=== PATIENT | female | born 1955 | race Caucasian/White ===

== ENCOUNTER 2016-07-05 17:26 | Emergency (ER) | payer OTHER ==
[~2016-07-05] VITALS: Ht 160 cm; Wt 46.6 kg
[~2016-07-05 17:26] MED LIST: ABILIFY15 MG PO; ACIPHEX20 MG PO; ADVAIR 500/501 DISK IH; ADVIL200 MG PO; ATARAX,VISTARIL50 MG PO; CIPRO500 MG PO; CLARITIN10 MG PO; CYMBALTA30 MG PO; CYMBALTA60 MG PO; DESYREL 150 MG150 MG PO; DESYREL100 MG PO; IBUPROFEN800 MG PO; IPRATROPIUM IH; IRON325 M1 PO; KLONOPIN0.5 M1 PO; LIPITOR20 MG PO; LOPRESSOR25 MG PO; NALTREXONE HCL50 MG PO; NEURONTIN100 MG PO; NORVASC10 MG PO; PRILOSEC40 MG PO; PROTONIX40 MG PO; PROVENTIL HFA6.7 GM IH; RISPERDAL0.5 MG PO; SEROQUEL50 MG PO; SPIRIVA1 INHALATI IH; THEO-24200 MG PO; THEO-DUR,THEOC200 MG PO; THEOPHYLLINE A200 M1 PO; TRAZODONE HCL100 MG PO; TRAZODONE HCL150 MG PO; TRAZODONE HCL50 MG PO; TRILEPTAL150 MG PO; TUMS300 MG PO; ULTRAM50 MG PO; VENLAFAXINE H37.5 M3 PO
[2016-07-05 17:54] LABS: HEMATOCRIT 37.5 % (36.0-46.0); MCH 29.3 PG (29.0-34.0); MCHC 34.7 G/DL (30.0-36.0); MCV 84.5 FL (83-99); MEAN PLAT.VOLUME 8.1 uM^3 (9.5-12.4); PLATELET COUNT 477 K/uL (156-360); RBC DIS.WIDTH-SD 36.1 % (39-53); RED BLOOD COUNT 4.44 M/uL (3.80-5.20); WHITE BLOOD COUNT 7.1 K/uL (4.1-10.2)
[2016-07-05 18:10] LABS: CHLORIDE 98 mEq/L (99-109); POTASSIUM 3.4 mEq/L (3.7-5.4); SODIUM 130 mEq/L (136-147)
[2016-07-05 18:12] LABS: GLUCOSE 95 mg/dL (70-99)
[2016-07-05 18:14] LABS: ANION GAP 15 MEQ/L (2-14)
[2016-07-05 18:16] LABS: GFR ESTIMATE (CALCULATED) > 59 mL/min/
[2016-07-05 18:17] LABS: UREA NITROGEN (BUN) 10 mg/dL (9-23)
[2016-07-05 18:31] LABS: ADD MIUA? YES; BILIRUBIN NEGATIVE; BLOOD NEGATIVE; COLOR YELLOW ((YELLOW)); GLUCOSE (STRIP) NEGATIVE; KETONES NEGATIVE; LEUKOCYTES TRACE; NITRITE NEGATIVE; PROTEIN (STRIP) NEGATIVE; UROBILINOGEN 0.2 MG/DL (0.2-1.0)
[2016-07-05 18:40] LABS: BACTERIA RARE /HPF; EPITHELIAL CELLS RARE /HPF; HYALINE CASTS 0-5 /LPF; MUCUS TRACE /LPF; RED BLOOD CELLS 0-5 /HPF (0-5); UCUL ADDED? NO
[2016-07-05 18:55] LABS: TOTAL BILIRUBIN 0.2 mg/dL (0.0-1.0)
[2016-07-05 18:56] LABS: ALKALINE PHOSPHATASE 94 IU/L (3-129)
[2016-07-05 18:58] LABS: DIRECT BILIRUBIN 0.1 mg/dL (0.0-0.3)
[2016-07-05 18:59] LABS: LIPASE 54 U/L (1.0-51.0)
[2016-07-05] MEDS ORDERED: PEPCID20 MG PO (20:30)
[2016-07-05] MEDS ORDERED: CIPRO500 MG PO (20:30)
[2016-07-05] MEDS ORDERED: ZOFRAN ODT8 MG PO (20:30)
[2016-07-05] MEDS ORDERED: FLAGYL250 MG PO (20:30)
[2016-07-05 21:08] VITALS: BP 158/94
== END 2016-07-05 21:29 | disposition home or self-care (01) ==
LOC: EME 17:26
DX: K52.9 Noninfective gastroenteritis and colitis, unspecified (principal); N39.0 Urinary tract infection, site not specified; I10 Essential (primary) hypertension; J44.9 Chronic obstructive pulmonary disease, unspecified; K21.9 Gastro-esophageal reflux disease without esophagitis; F17.200 Nicotine dependence, unspecified, uncomplicated
CPT/HCPCS: 74177; 80048; 80076; 81003; 83690; 85027; 99281; 99285; J0360; J7030

== ENCOUNTER 2016-11-12 14:24 | Inpatient (IN) | payer OTHER ==
[~2016-11-12] VITALS: Ht 157.5 cm; Wt 43.6 kg
[~2016-11-12 14:24] MED LIST changes: +FLAGYL250 MG PO; +PEPCID20 MG PO; +ZOFRAN ODT8 MG PO
[2016-11-12] MEDS ORDERED: VISTARIL50 MG PO (14:56)
[2016-11-12 15:37] LABS: EOSINOPHIL (%) 2.5 % (0-5); EOSINOPHIL COUNT 0.2 K/uL (0-0.3); HEMATOCRIT 25.6 % (36.0-46.0); IMMATURE GRANULOCYTE (%) 0.3 % (0.0-0.7); INSTRUMENT ABS NEUTROPHIL CT 4.5 K/uL; LYMPHOCYTE COUNT 1.6 K/uL (1.0-2.8); MCH 30.6 PG (29.0-34.0); MCHC 35.5 G/DL (30.0-36.0); MCV 86.2 FL (83-99); MEAN PLAT.VOLUME 8.4 uM^3 (9.5-12.4); MONOCYTE COUNT 0.4 K/uL (0-0.8); NEUTROPHIL (%) 66.5 % (45-76); NEUTROPHIL COUNT 4.5 K/uL (1.8-6.4); PLATELET COUNT 455 K/uL (156-360); RBC DIS.WIDTH-CV 14.5 % (11.8-14.6); RBC DIS.WIDTH-SD 45.5 % (39-53); RED BLOOD COUNT 2.97 M/uL (3.80-5.20); WHITE BLOOD COUNT 6.7 K/uL (4.1-10.2)
[2016-11-12 15:57] LABS: CHLORIDE 108 mEq/L (99-109); SODIUM 135 mEq/L (136-147)
[2016-11-12 15:59] LABS: GLUCOSE 94 mg/dL (70-99)
[2016-11-12 16:01] LABS: TOTAL BILIRUBIN 0.3 mg/dL (0.0-1.0)
[2016-11-12 16:02] LABS: TROP-I INTERPRETATION NEGATIVE; TROPONIN-I 0.02 ng/mL (0.0-0.30)
[2016-11-12 16:03] LABS: ALKALINE PHOSPHATASE 111 IU/L (3-129); GFR ESTIMATE (CALCULATED) 31 mL/min/
[2016-11-12 16:04] LABS: UREA NITROGEN (BUN) 17 mg/dL (9-23)
[2016-11-12 16:24] LABS: ANION GAP 11 MEQ/L (2-14); POTASSIUM 2.2 mEq/L (3.7-5.4)
[2016-11-12] MEDS ORDERED: PROAIR HFA8.5 GM IH (17:18)
[2016-11-12] MEDS ORDERED: LOPRESSOR50 MG PO (17:19)
[2016-11-12] MEDS ORDERED: TRILEPTAL300 MG PO (17:19)
[2016-11-12] MEDS ORDERED: HYDROXYZINE PAM50 MG PO (17:19)
[2016-11-12] MEDS ORDERED: THEOPHYLLINE400 MG PO (17:20)
[2016-11-12] MEDS ORDERED: VITAMIN A8000 UNIT PO (17:20)
[2016-11-12] MEDS ORDERED: COMPAZINE10 MG PO (17:20)
[2016-11-12] MEDS ORDERED: ONE-A-DAY ESSE1 EAC1 PO (17:20)
[2016-11-12] MEDS ORDERED: SEROQUEL100 MG PO (17:20)
[2016-11-12] MEDS ORDERED: B COMPLEX #11 EACH PO (17:20)
[2016-11-12] MEDS ORDERED: KLOR-CON M2020 MEQ PO (17:21)
[2016-11-12] MEDS ORDERED: LIALDA1.2 GM PO (17:21)
[2016-11-12] MEDS ORDERED: CYMBALTA60 MG PO (17:21)
[2016-11-12] MEDS ORDERED: PROTONIX40 MG PO (17:21)
[2016-11-12] MEDS ORDERED: LOPERAMIDE2 M1 PO (17:22)
[2016-11-12] MEDS ORDERED: DICYCLOMINE HCL20 MG PO (17:22)
[2016-11-12 17:34] LABS: ADD MIUA? YES; BILIRUBIN NEGATIVE; BLOOD NEGATIVE; COLOR YELLOW ((YELLOW)); GLUCOSE (STRIP) NEGATIVE; KETONES NEGATIVE; LEUKOCYTES NEGATIVE; NITRITE NEGATIVE; PROTEIN (STRIP) 30; SPECIFIC GRAVITY 1.013 (1.000-1.030); UROBILINOGEN 0.2 MG/DL (0.2-1.0)
[2016-11-12 17:50] LABS: BACTERIA RARE /HPF; CALCIUM OXALATE CRYSTALS 2+ /HPF; EPITHELIAL CELLS 1+ /HPF; HYALINE CASTS 20-30 /LPF; MUCUS TRACE /LPF; RED BLOOD CELLS 0-5 /HPF (0-5); UCUL ADDED? NO; WHITE BLOOD CELLS 0-5 /HPF (0-5)
[2016-11-12 19:06] LABS: INTACT PARATHYROID HORMONE 19 pg/mL (10-69)
[2016-11-12 19:29] LABS: ERTH.SED.RATE 8 MM/HR (0-30)
[2016-11-12 21:00] VITALS: BP 111/58
[2016-11-12 22:29] LABS: PREALBUMIN 21.6 mg/dL (10-40)
[2016-11-12 23:31] VITALS: BP 114/60
[2016-11-13 01:13] LABS: TROP-I INTERPRETATION NEGATIVE; TROPONIN-I 0.02 ng/mL (0.0-0.30)
[2016-11-13 04:12] VITALS: BP 116/64
[2016-11-13 06:11] LABS: MCH 31.6 PG (29.0-34.0); MCHC 35.5 G/DL (30.0-36.0); MCV 89.1 FL (83-99); MEAN PLAT.VOLUME 8.8 uM^3 (9.5-12.4); PLATELET COUNT 442 K/uL (156-360); RBC DIS.WIDTH-CV 15.3 % (11.8-14.6); RBC DIS.WIDTH-SD 49.9 % (39-53); RED BLOOD COUNT 2.47 M/uL (3.80-5.20); WHITE BLOOD COUNT 6.6 K/uL (4.1-10.2)
[2016-11-13 06:39] LABS: TROP-I INTERPRETATION NEGATIVE; TROPONIN-I 0.02 ng/mL (0.0-0.30)
[2016-11-13 08:37] VITALS: BP 123/74
[2016-11-13 10:40] LABS: ANION GAP 11 MEQ/L (2-14); CHLORIDE 116 MEQ/L (99-109); GFR ESTIMATE (CALCULATED) 49 mL/min/; GLUCOSE 103 mg/dL (70-99); IRON 100 MCG/DL (35-150); POTASSIUM 2.8 MEQ/L (3.7-5.4); SAMPLE HEMOLYSIS CHECK 0; SAMPLE ICTERIC CHECK 0; SAMPLE LIPEMIA CHECK 0; SODIUM 140 MEQ/L (136-147); UREA NITROGEN (BUN) 12 mg/dL (9-23)
[2016-11-13 10:46] LABS: FERRITIN 300 NG/ML (10-291)
[2016-11-13 11:02] LABS: HBSG INDEX 0.21
[2016-11-13 11:03] LABS: HPCA INDEX 0.12
[2016-11-13 11:05] LABS: ANTI-HEPATITIS A VIRUS (IGM) Nonreactive; ANTI-HEPATITIS B CORE (IGM) Nonreactive; HBC IgM INDEX 0.05
[2016-11-13 11:13] VITALS: BP 106/62
[2016-11-13 15:08] VITALS: BP 114/71
[2016-11-13 17:08] LABS: INTERNAL CONTROL VALID? YES
[2016-11-13 17:47] LABS: C DIFF TOXIN POSITIVE (NEGATIVE)
[2016-11-13 17:54] LABS: PROBE CHECK PASS
[2016-11-13 19:43] VITALS: BP 122/70
[2016-11-13 19:53] LABS: UR CREATININE CONCENTRATION 75.3 MG/DL
[2016-11-13 22:11] LABS: ANION GAP 6 MEQ/L (2-14); CHLORIDE 117 MEQ/L (99-109); SAMPLE HEMOLYSIS CHECK 0; SAMPLE ICTERIC CHECK 0; SAMPLE LIPEMIA CHECK 0; SODIUM 141 MEQ/L (136-147)
[2016-11-13 22:12] LABS: POTASSIUM 3.8 MEQ/L (3.7-5.4)
[2016-11-13 22:17] LABS: GFR ESTIMATE (CALCULATED) > 59 mL/min/; GLUCOSE 102 mg/dL (70-99); UREA NITROGEN (BUN) 8 mg/dL (9-23)
[2016-11-13 23:47] VITALS: BP 119/68
[2016-11-14 04:07] VITALS: BP 121/76
[2016-11-14 06:06] LABS: MCH 31.6 PG (29.0-34.0); MCHC 35.2 G/DL (30.0-36.0); MCV 89.7 FL (83-99); MEAN PLAT.VOLUME 8.7 uM^3 (9.5-12.4); PLATELET COUNT 457 K/uL (156-360); RBC DIS.WIDTH-CV 15.4 % (11.8-14.6); RED BLOOD COUNT 2.34 M/uL (3.80-5.20); WHITE BLOOD COUNT 7.5 K/uL (4.1-10.2)
[2016-11-14 07:40] VITALS: BP 141/72
[2016-11-14 07:59] LABS: ANION GAP 4 MEQ/L (2-14); CHLORIDE 121 MEQ/L (99-109); GFR ESTIMATE (CALCULATED) > 59 mL/min/; GLUCOSE 92 mg/dL (70-99); SAMPLE HEMOLYSIS CHECK 0; SAMPLE ICTERIC CHECK 0; SAMPLE LIPEMIA CHECK 0; SODIUM 143 MEQ/L (136-147); UREA NITROGEN (BUN) 6 mg/dL (9-23); URIC ACID 5.7 mg/dL (3.1-9.2)
[2016-11-14 08:22] LABS: MAGNESIUM 2.1 mg/dl (1.3-2.7); POTASSIUM 4.8 MEQ/L (3.7-5.4)
[2016-11-14 11:17] VITALS: BP 105/57
[2016-11-14 12:45] LABS: HEMATOCRIT 25.2 % (36.0-46.0); MCH 31.6 PG (29.0-34.0); MCHC 34.5 G/DL (30.0-36.0); MCV 91.6 FL (83-99); MEAN PLAT.VOLUME 8.6 uM^3 (9.5-12.4); PLATELET COUNT 512 K/uL (156-360); RBC DIS.WIDTH-CV 15.9 % (11.8-14.6); RBC DIS.WIDTH-SD 53.4 % (39-53); RED BLOOD COUNT 2.75 M/uL (3.80-5.20); WHITE BLOOD COUNT 9.8 K/uL (4.1-10.2)
[2016-11-14 14:24] VITALS: BP 100/58
[2016-11-14 20:11] VITALS: BP 115/58
[2016-11-14 23:36] VITALS: BP 120/61
[2016-11-15 04:11] VITALS: BP 117/55
[2016-11-15 06:50] LABS: HEMATOCRIT 24.8 % (36.0-46.0); MCH 31.9 PG (29.0-34.0); MCHC 33.9 G/DL (30.0-36.0); MCV 94.3 FL (83-99); MEAN PLAT.VOLUME 8.6 uM^3 (9.5-12.4); PLATELET COUNT 476 K/uL (156-360); RBC DIS.WIDTH-SD 55.6 % (39-53); RED BLOOD COUNT 2.63 M/uL (3.80-5.20); WHITE BLOOD COUNT 7.4 K/uL (4.1-10.2)
[2016-11-15 07:29] LABS: ANION GAP 7 MEQ/L (2-14); CHLORIDE 116 MEQ/L (99-109); GFR ESTIMATE (CALCULATED) > 59 mL/min/; GLUCOSE 98 mg/dL (70-99); POTASSIUM 4.9 MEQ/L (3.7-5.4); SAMPLE HEMOLYSIS CHECK 0; SAMPLE ICTERIC CHECK 0; SAMPLE LIPEMIA CHECK 0; SODIUM 142 MEQ/L (136-147); UREA NITROGEN (BUN) 5 mg/dL (9-23)
[2016-11-15 07:31] LABS: MAGNESIUM 1.2 mg/dl (1.3-2.7)
[2016-11-15 07:52] VITALS: BP 145/80
[2016-11-15 11:26] VITALS: BP 129/85
[2016-11-15 16:18] VITALS: BP 130/84
[2016-11-15 19:48] VITALS: BP 140/73
[2016-11-16 00:17] VITALS: BP 129/77
[2016-11-16 05:59] LABS: HEMATOCRIT 23.5 % (36.0-46.0); MCH 30.4 PG (29.0-34.0); MCHC 32.8 G/DL (30.0-36.0); MCV 92.9 FL (83-99); MEAN PLAT.VOLUME 8.3 uM^3 (9.5-12.4); PLATELET COUNT 418 K/uL (156-360); RBC DIS.WIDTH-CV 15.4 % (11.8-14.6); RBC DIS.WIDTH-SD 52.5 % (39-53); RED BLOOD COUNT 2.53 M/uL (3.80-5.20); WHITE BLOOD COUNT 6.6 K/uL (4.1-10.2)
[2016-11-16 06:29] LABS: ANION GAP 7 MEQ/L (2-14); CHLORIDE 112 MEQ/L (99-109); GFR ESTIMATE (CALCULATED) > 59 mL/min/; GLUCOSE 86 mg/dL (70-99); MAGNESIUM 1.1 mg/dl (1.3-2.7); POTASSIUM 4.3 MEQ/L (3.7-5.4); SAMPLE HEMOLYSIS CHECK 0; SAMPLE ICTERIC CHECK 0; SAMPLE LIPEMIA CHECK 0; SODIUM 139 MEQ/L (136-147); UREA NITROGEN (BUN) 4 mg/dL (9-23)
[2016-11-16 07:25] VITALS: BP 133/82
[2016-11-16 12:03] VITALS: BP 157/77
[2016-11-16 13:21] VITALS: BP 142/79
[2016-11-16 19:51] VITALS: BP 116/61
[2016-11-16 23:39] VITALS: BP 123/71
[2016-11-17 04:11] VITALS: BP 134/85
[2016-11-17 06:02] LABS: BASOPHIL COUNT 0.1 K/uL (0-0.1); EOSINOPHIL (%) 5.3 % (0-5); EOSINOPHIL COUNT 0.4 K/uL (0-0.3); HEMATOCRIT 25.4 % (36.0-46.0); IMMATURE GRANULOCYTE (%) 0.3 % (0.0-0.7); LYMPHOCYTE COUNT 1.7 K/uL (1.0-2.8); MCH 31.5 PG (29.0-34.0); MCHC 33.9 G/DL (30.0-36.0); MEAN PLAT.VOLUME 8.4 uM^3 (9.5-12.4); MONOCYTE (%) 6.7 % (3-12); MONOCYTE COUNT 0.4 K/uL (0-0.8); NEUTROPHIL (%) 60.8 % (45-76); PLATELET COUNT 454 K/uL (156-360); RBC DIS.WIDTH-CV 15.1 % (11.8-14.6); RBC DIS.WIDTH-SD 51.9 % (39-53); RED BLOOD COUNT 2.73 M/uL (3.80-5.20); WHITE BLOOD COUNT 6.6 K/uL (4.1-10.2)
[2016-11-17 06:22] LABS: ANION GAP 9 MEQ/L (2-14); CHLORIDE 108 MEQ/L (99-109); GFR ESTIMATE (CALCULATED) > 59 mL/min/; GLUCOSE 91 mg/dL (70-99); POTASSIUM 3.8 MEQ/L (3.7-5.4); SAMPLE HEMOLYSIS CHECK 0; SAMPLE ICTERIC CHECK 0; SAMPLE LIPEMIA CHECK 0; SODIUM 139 MEQ/L (136-147); UREA NITROGEN (BUN) 4 mg/dL (9-23)
[2016-11-17 06:26] LABS: ANION GAP 7 MEQ/L (2-14); CHLORIDE 109 MEQ/L (99-109); GFR ESTIMATE (CALCULATED) > 59 mL/min/; GLUCOSE 88 mg/dL (70-99); MAGNESIUM 1.4 mg/dl (1.3-2.7); POTASSIUM 3.9 MEQ/L (3.7-5.4); SAMPLE HEMOLYSIS CHECK 0; SAMPLE ICTERIC CHECK 0; SAMPLE LIPEMIA CHECK 0; SODIUM 140 MEQ/L (136-147); UREA NITROGEN (BUN) 4 mg/dL (9-23)
[2016-11-17 07:41] VITALS: BP 137/84
[2016-11-17] MEDS ORDERED: VANCOCIN 250 M250 MG PO (08:37)
[2016-11-17] MEDS ORDERED: MAG DELAY70 MG PO (08:41)
== END 2016-11-17 10:31 | disposition home or self-care (01) | DRG 372 ==
LOC: EME 14:24 → EDOF 17:26 → 5SOUTH 17:26
PROVIDERS: Emergency Medicine; Hospitalist; Internal Medicine Gastroenterology; Internal Medicine Nephrology; Nurse Practitioner Adult Health
DX: A04.7 Enterocolitis due to Clostridium difficile (principal); N17.9 Acute kidney failure, unspecified; K29.70 Gastritis, unspecified, without bleeding; K22.10 Ulcer of esophagus without bleeding; E46 Unspecified protein-calorie malnutrition; R64 Cachexia; E83.39 Other disorders of phosphorus metabolism; E83.42 Hypomagnesemia; E86.0 Dehydration; E87.2 Acidosis; E87.6 Hypokalemia; I95.1 Orthostatic hypotension; F10.20 Alcohol dependence, uncomplicated; I10 Essential (primary) hypertension; J44.9 Chronic obstructive pulmonary disease, unspecified; K21.9 Gastro-esophageal reflux disease without esophagitis; G43.909 Migraine, unspecified, not intractable, without status migrainosus; D64.9 Anemia, unspecified; F33.42 Major depressive disorder, recurrent, in full remission; R15.9 Full incontinence of feces; F17.210 Nicotine dependence, cigarettes, uncomplicated; N39.3 Stress incontinence (female) (male); M54.9 Dorsalgia, unspecified; Z68.1 Body mass index [BMI] 19.9 or less, adult; Z80.3 Family history of malignant neoplasm of breast; Z80.41 Family history of malignant neoplasm of ovary; Z85.3 Personal history of malignant neoplasm of breast; Z87.11 Personal history of peptic ulcer disease; Z92.3 Personal history of irradiation
CPT/HCPCS: 71020; 71250; 74176; 80048; 80048 91; 80053; 80069; 80074; 81003; 82272; 82306; 82436; 82533 91; 82570; 82607; 82728; 82746; 83516 90; 83540; 83735; 83935; 83970; 84100; 84133; 84134; 84300; 84443; 84466; 84484; 84550; 84590 90; 85025; 85027; 85651; 86900; 86901; 86920; 87493; 88305; 88342 TC; 93005; 94640; 99202; 99281; 99285; J1644; J2405; J3475; J3480; J7030; J7070; Q0164

== ENCOUNTER 2017-01-09 10:38 | Inpatient (IN) | payer OTHER ==
[~2017-01-09] VITALS: Ht 170.2 cm; Wt 75.3 kg
[~2017-01-09 10:38] MED LIST changes: -ADVIL200 MG PO; +B COMPLEX #11 EACH PO; +COMPAZINE10 MG PO; +DICYCLOMINE HCL20 MG PO; +HYDROXYZINE PAM50 MG PO; +IBUPROFEN400 MG PO; +KLOR-CON M2020 MEQ PO; +LIALDA1.2 GM PO; +LOPERAMIDE2 M1 PO; +LOPRESSOR50 MG PO; +MAG DELAY70 MG PO; +ONE-A-DAY ESSE1 EAC1 PO; +PROAIR HFA8.5 GM IH; +SEROQUEL100 MG PO; +THEOPHYLLINE400 MG PO; +TRILEPTAL300 MG PO; +VANCOCIN 250 M250 MG PO; +VISTARIL50 MG PO; +VITAMIN A8000 UNIT PO
[2017-01-09 12:17] LABS: ADD MIUA? YES; BILIRUBIN MODERATE; BLOOD MODERATE; COLOR YELLOW ((YELLOW)); GLUCOSE (STRIP) NEGATIVE; KETONES 80; LEUKOCYTES NEGATIVE; NITRITE NEGATIVE; PROTEIN (STRIP) 100; UROBILINOGEN 0.2 MG/DL (0.2-1.0)
[2017-01-09 12:20] LABS: BACTERIA 2+ /HPF; CASTS NONE SEEN /LPF; CRYSTALS NONE SEEN; EPITHELIAL CELLS NONE SEEN /HPF; MUCUS RARE /LPF; RED BLOOD CELLS 0-5 /HPF (0-5); UCUL ADDED? YES; WHITE BLOOD CELLS RARE /HPF (0-5)
[2017-01-09 12:26] LABS: EOSINOPHIL (%) 0.1 % (0-5); HEMATOCRIT 33.2 % (36.0-46.0); IMMATURE GRANULOCYTE (%) 1.2 % (0.0-0.7); IMMATURE GRANULOCYTE COUNT 0.2 K/uL; INSTRUMENT ABS NEUTROPHIL CT 16.9 K/uL; LYMPHOCYTE COUNT 0.9 K/uL (1.0-2.8); MCH 31.7 PG (29.0-34.0); MCHC 32.8 G/DL (30.0-36.0); MCV 96.5 FL (83-99); MONOCYTE (%) 7.7 % (3-12); MONOCYTE COUNT 1.5 K/uL (0-0.8); NEUTROPHIL (%) 86.4 % (45-76); NEUTROPHIL COUNT 16.9 K/uL (1.8-6.4); RBC DIS.WIDTH-CV 15.6 % (11.8-14.6); RBC DIS.WIDTH-SD 55.8 % (39-53); RED BLOOD COUNT 3.44 M/uL (3.80-5.20); WHITE BLOOD COUNT 19.6 K/uL (4.1-10.2)
[2017-01-09 12:38] LABS: CHLORIDE 121 mEq/L (99-109); POTASSIUM 4.2 mEq/L (3.7-5.4); SODIUM 155 mEq/L (136-147)
[2017-01-09 12:39] LABS: MAGNESIUM 1.4 mg/dL (1.3-2.7)
[2017-01-09 12:41] LABS: GLUCOSE 99 mg/dL (70-99)
[2017-01-09 12:42] LABS: ANION GAP 20 MEQ/L (2-14); TOTAL BILIRUBIN 0.7 mg/dL (0.0-1.0)
[2017-01-09 12:44] LABS: GFR ESTIMATE (CALCULATED) > 59 mL/min/
[2017-01-09 12:45] LABS: UREA NITROGEN (BUN) 20 mg/dL (9-23)
[2017-01-09 12:47] LABS: TROP-I INTERPRETATION NEGATIVE; TROPONIN-I 0.04 ng/mL (0.0-0.30)
[2017-01-09 12:48] LABS: CREATINE KINASE 477 IU/L (1-294); LIPASE 41 U/L (1.0-51.0)
[2017-01-09 12:52] LABS: INTER. NORMALIZED RATIO 1.1; PROTHROMBIN TIME 12.3 SEC (10.2-12.9)
[2017-01-09 12:55] LABS: PTT 32.1 SEC (25-37)
[2017-01-09 13:01] LABS: ALKALINE PHOSPHATASE 190 IU/L (3-129)
[2017-01-09 13:43] LABS: ICTOTEST NEGATIVE
[2017-01-09 13:47] LABS: MEAN PLAT.VOLUME 9.4 uM^3 (9.5-12.4); PLAT.SUFFICIENCY INCREASED; PLATELET COUNT 601 K/uL (156-360)
[2017-01-09] MEDS ORDERED: FUROSEMIDE20 MG PO (14:01)
[2017-01-09] MEDS ORDERED: NEURONTIN100 MG PO (14:04)
[2017-01-09] MEDS ORDERED: MOBIC7.5 MG PO (14:06)
[2017-01-09] MEDS ORDERED: IRON325 M1 PO (14:07)
[2017-01-09] MEDS ORDERED: EXTRA STRENGTH500 M1 PO (14:10)
[2017-01-09] MEDS ORDERED: QUETIAPINE FUM200 MG PO (14:11)
[2017-01-09] MEDS ORDERED: IPRATROPIU0.2 MG/1 M IH (14:20)
[2017-01-09] MEDS ORDERED: QUETIAPINE FUM100 MG PO (18:59)
[2017-01-09 20:52] VITALS: BP 163/84
[2017-01-10 00:48] LABS: CHLORIDE 122 mEq/L (99-109); SODIUM 156 mEq/L (136-147)
[2017-01-10 00:50] LABS: GLUCOSE 85 mg/dL (70-99)
[2017-01-10 00:51] LABS: ANION GAP 16 MEQ/L (2-14)
[2017-01-10 00:54] LABS: GFR ESTIMATE (CALCULATED) > 59 mL/min/
[2017-01-10 00:55] LABS: UREA NITROGEN (BUN) 13 mg/dL (9-23)
[2017-01-10 00:59] LABS: POTASSIUM 2.3 mEq/L (3.7-5.4)
[2017-01-10 01:01] LABS: TROP-I INTERPRETATION NEGATIVE; TROPONIN-I 0.05 ng/mL (0.0-0.30)
[2017-01-10 07:08] LABS: HEMATOCRIT 33.1 % (36.0-46.0); MCH 33.1 PG (29.0-34.0); MCHC 33.5 G/DL (30.0-36.0); MCV 98.8 FL (83-99); MEAN PLAT.VOLUME 9.3 uM^3 (9.5-12.4); PLATELET COUNT 635 K/uL (156-360); RBC DIS.WIDTH-CV 15.9 % (11.8-14.6); RBC DIS.WIDTH-SD 57.8 % (39-53); RED BLOOD COUNT 3.35 M/uL (3.80-5.20); WHITE BLOOD COUNT 15.8 K/uL (4.1-10.2)
[2017-01-10 07:42] LABS: ANION GAP 16 MEQ/L (2-14); CHLORIDE 124 MEQ/L (99-109); GFR ESTIMATE (CALCULATED) > 59 mL/min/; GLUCOSE 77 mg/dL (70-99); SAMPLE HEMOLYSIS CHECK 0; SAMPLE ICTERIC CHECK 0; SAMPLE LIPEMIA CHECK 0; SODIUM 159 MEQ/L (136-147); UREA NITROGEN (BUN) 12 mg/dL (9-23)
[2017-01-10 07:44] LABS: TROP-I INTERPRETATION NEGATIVE; TROPONIN-I 0.07 ng/mL (0.0-0.30)
[2017-01-10 07:51] LABS: POTASSIUM 4.2 MEQ/L (3.7-5.4)
[2017-01-10 08:03] VITALS: BP 134/68
[2017-01-10 08:10] LABS: AMPHETAMINES QUANT VALUE 0 NG/ML; BARBITUATES QUANT VALUE 0 NG/ML; BENZODIAZEPINES QUANT VALUE 0 NG/ML; BENZODIAZEPINES, URINE SCREEN Negative (200 ng/mL); MARIJUANA QUANT VALUE 0 NG/ML; OPIATES QUANTITATIVE VALUE 0 NG/ML; PHENCYCLIDINE QUANT VALUE 0 NG/ML
[2017-01-10 11:31] VITALS: BP 158/82
[2017-01-10 16:03] VITALS: BP 142/68
[2017-01-10 16:10] LABS: ANION GAP 10 MEQ/L (2-14); CHLORIDE 120 MEQ/L (99-109); GFR ESTIMATE (CALCULATED) > 59 mL/min/; GLUCOSE 144 mg/dL (70-99); POTASSIUM 3.2 MEQ/L (3.7-5.4); SAMPLE HEMOLYSIS CHECK 0; SAMPLE ICTERIC CHECK 0; SAMPLE LIPEMIA CHECK 0; SODIUM 149 MEQ/L (136-147); UREA NITROGEN (BUN) 9 mg/dL (9-23)
[2017-01-10 19:53] VITALS: BP 142/86
[2017-01-11 00:48] VITALS: BP 168/86
[2017-01-11 08:52] VITALS: BP 152/90
[2017-01-11 16:07] VITALS: BP 132/77
[2017-01-11 18:48] LABS: ANION GAP 8 MEQ/L (2-14); CHLORIDE 115 MEQ/L (99-109); CREATINE KINASE 63 IU/L (1-294); GFR ESTIMATE (CALCULATED) > 59 mL/min/; GLUCOSE 137 mg/dL (70-99); POTASSIUM 2.7 MEQ/L (3.7-5.4); SAMPLE HEMOLYSIS CHECK 0; SAMPLE ICTERIC CHECK 0; SAMPLE LIPEMIA CHECK 0; SODIUM 148 MEQ/L (136-147); UREA NITROGEN (BUN) 4 mg/dL (9-23)
[2017-01-11 21:08] VITALS: BP 164/87
[2017-01-12] VITALS (7 sets, daily range): BP systolic 160–190; BP diastolic 81–99
[2017-01-12 06:20] LABS: HEMATOCRIT 29.8 % (36.0-46.0); MCH 32.9 PG (29.0-34.0); MCHC 32.9 G/DL (30.0-36.0); RBC DIS.WIDTH-CV 15.2 % (11.8-14.6); RBC DIS.WIDTH-SD 55.9 % (39-53); RED BLOOD COUNT 2.98 M/uL (3.80-5.20); WHITE BLOOD COUNT 11.2 K/uL (4.1-10.2)
[2017-01-12 06:53] LABS: ANION GAP 9 MEQ/L (2-14); CHLORIDE 111 MEQ/L (99-109); GFR ESTIMATE (CALCULATED) > 59 mL/min/; GLUCOSE 118 mg/dL (70-99); SAMPLE HEMOLYSIS CHECK 0; SAMPLE ICTERIC CHECK 0; SAMPLE LIPEMIA CHECK 0; SODIUM 146 MEQ/L (136-147); UREA NITROGEN (BUN) 4 mg/dL (9-23)
[2017-01-12 06:54] LABS: ANION GAP 9 MEQ/L (2-14); CHLORIDE 110 MEQ/L (99-109); GFR ESTIMATE (CALCULATED) > 59 mL/min/; GLUCOSE 117 mg/dL (70-99); POTASSIUM 2.9 MEQ/L (3.7-5.4); SAMPLE HEMOLYSIS CHECK 0; SAMPLE ICTERIC CHECK 0; SAMPLE LIPEMIA CHECK 0; SODIUM 146 MEQ/L (136-147); UREA NITROGEN (BUN) 4 mg/dL (9-23)
[2017-01-12 07:29] LABS: PLAT.SUFFICIENCY ADEQUATE; PLATELET CLUMPS PRESENT - PLATELET COUNT APPEARS ADQ.
[2017-01-12 07:30] LABS: PLATELET COUNT UNABLE TO REPORT K/uL (156-360)
[2017-01-13 04:53] VITALS: BP 137/78
[2017-01-13 06:49] LABS: EOSINOPHIL (%) 0.3 % (0-5); HEMATOCRIT 34.1 % (36.0-46.0); IMMATURE GRANULOCYTE (%) 1.1 % (0.0-0.7); IMMATURE GRANULOCYTE COUNT 0.1 K/uL; LYMPHOCYTE COUNT 1.2 K/uL (1.0-2.8); MCH 32.8 PG (29.0-34.0); MCHC 33.1 G/DL (30.0-36.0); MCV 98.8 FL (83-99); MEAN PLAT.VOLUME 10.2 uM^3 (9.5-12.4); MONOCYTE (%) 7.4 % (3-12); MONOCYTE COUNT 0.9 K/uL (0-0.8); NEUTROPHIL (%) 81.2 % (45-76); RBC DIS.WIDTH-CV 14.7 % (11.8-14.6); RBC DIS.WIDTH-SD 53.8 % (39-53); RED BLOOD COUNT 3.45 M/uL (3.80-5.20); WHITE BLOOD COUNT 12.4 K/uL (4.1-10.2)
[2017-01-13 07:18] LABS: ALKALINE PHOSPHATASE 147 IU/L (3-129); ANION GAP 11 MEQ/L (2-14); CHLORIDE 110 MEQ/L (99-109); DIRECT BILIRUBIN 0.1 mg/dL (0.0-0.3); GFR ESTIMATE (CALCULATED) > 59 mL/min/; GLUCOSE 100 mg/dL (70-99); POTASSIUM 3.5 MEQ/L (3.7-5.4); SAMPLE HEMOLYSIS CHECK 0; SAMPLE ICTERIC CHECK 0; SAMPLE LIPEMIA CHECK 0; SODIUM 147 MEQ/L (136-147); TOTAL BILIRUBIN 0.5 MG/DL (0.0-1.0); UREA NITROGEN (BUN) 5 mg/dL (9-23)
[2017-01-13 07:37] LABS: PLATELET COUNT 397 K/uL (156-360)
[2017-01-13 07:43] VITALS: BP 160/100; BP 190/113
[2017-01-13 11:24] VITALS: BP 158/84
[2017-01-13 15:32] VITALS: BP 148/91
[2017-01-14] VITALS: BP 132/86
[2017-01-14 06:42] LABS: EOSINOPHIL (%) 0.4 % (0-5); EOSINOPHIL COUNT 0.1 K/uL (0-0.3); IMMATURE GRANULOCYTE (%) 1.1 % (0.0-0.7); IMMATURE GRANULOCYTE COUNT 0.2 K/uL; INSTRUMENT ABS NEUTROPHIL CT 10.9 K/uL; LYMPHOCYTE COUNT 1.4 K/uL (1.0-2.8); MCH 31.7 PG (29.0-34.0); MCHC 32.3 G/DL (30.0-36.0); MCV 98.3 FL (83-99); MEAN PLAT.VOLUME 10.5 uM^3 (9.5-12.4); MONOCYTE (%) 8.4 % (3-12); MONOCYTE COUNT 1.1 K/uL (0-0.8); NEUTROPHIL (%) 79.8 % (45-76); NEUTROPHIL COUNT 10.9 K/uL (1.8-6.4); PLATELET COUNT 424 K/uL (156-360); RBC DIS.WIDTH-CV 14.5 % (11.8-14.6); RBC DIS.WIDTH-SD 53.1 % (39-53); RED BLOOD COUNT 3.56 M/uL (3.80-5.20); WHITE BLOOD COUNT 13.7 K/uL (4.1-10.2)
[2017-01-14 07:05] LABS: ANION GAP 8 MEQ/L (2-14); CHLORIDE 114 MEQ/L (99-109); GFR ESTIMATE (CALCULATED) > 59 mL/min/; GLUCOSE 98 mg/dL (70-99); POTASSIUM 3.4 MEQ/L (3.7-5.4); SAMPLE HEMOLYSIS CHECK 0; SAMPLE ICTERIC CHECK 0; SAMPLE LIPEMIA CHECK 0; SODIUM 150 MEQ/L (136-147); UREA NITROGEN (BUN) 4 mg/dL (9-23)
[2017-01-14 08:38] VITALS: BP 136/92
[2017-01-14 16:45] VITALS: BP 140/82
[2017-01-14 17:25] LABS: C DIFF TOXIN NEGATIVE (NEGATIVE)
[2017-01-14 17:27] LABS: PROBE CHECK PASS; SPECIMEN PROCESSING CONTROL PASS
[2017-01-14 23:29] VITALS: BP 183/98
[2017-01-15 06:43] LABS: BASOPHIL COUNT 0.1 K/uL (0-0.1); EOSINOPHIL (%) 1.4 % (0-5); EOSINOPHIL COUNT 0.2 K/uL (0-0.3); HEMATOCRIT 29.8 % (36.0-46.0); IMMATURE GRANULOCYTE (%) 0.9 % (0.0-0.7); IMMATURE GRANULOCYTE COUNT 0.1 K/uL; INSTRUMENT ABS NEUTROPHIL CT 10.9 K/uL; LYMPHOCYTE COUNT 1.9 K/uL (1.0-2.8); MCHC 33.2 G/DL (30.0-36.0); MCV 99.3 FL (83-99); MEAN PLAT.VOLUME 10.3 uM^3 (9.5-12.4); MONOCYTE (%) 6.8 % (3-12); NEUTROPHIL (%) 76.8 % (45-76); NEUTROPHIL COUNT 10.9 K/uL (1.8-6.4); PLATELET COUNT 370 K/uL (156-360); RBC DIS.WIDTH-CV 14.4 % (11.8-14.6); RBC DIS.WIDTH-SD 52.6 % (39-53); WHITE BLOOD COUNT 14.2 K/uL (4.1-10.2)
[2017-01-15 07:17] LABS: ANION GAP 10 MEQ/L (2-14); CHLORIDE 105 MEQ/L (99-109); GFR ESTIMATE (CALCULATED) > 59 mL/min/; GLUCOSE 107 mg/dL (70-99); POTASSIUM 3.9 MEQ/L (3.7-5.4); SAMPLE HEMOLYSIS CHECK 0; SAMPLE ICTERIC CHECK 0; SAMPLE LIPEMIA CHECK 0; UREA NITROGEN (BUN) 3 mg/dL (9-23)
[2017-01-15 07:18] LABS: SODIUM 139 MEQ/L (136-147)
[2017-01-15 08:01] VITALS: BP 124/76
[2017-01-15 16:06] VITALS: BP 130/78
[2017-01-15 23:55] VITALS: BP 99/62
[2017-01-16 07:47] LABS: ANION GAP 8 MEQ/L (2-14); CHLORIDE 109 MEQ/L (99-109); GFR ESTIMATE (CALCULATED) > 59 mL/min/; GLUCOSE 87 mg/dL (70-99); POTASSIUM 3.9 MEQ/L (3.7-5.4); SAMPLE HEMOLYSIS CHECK 0; SAMPLE ICTERIC CHECK 0; SAMPLE LIPEMIA CHECK 0; SODIUM 140 MEQ/L (136-147); UREA NITROGEN (BUN) 4 mg/dL (9-23)
[2017-01-16 07:50] LABS: MAGNESIUM 0.9 mg/dl (1.3-2.7)
[2017-01-16 08:42] VITALS: BP 146/80
[2017-01-16 12:19] LABS: ALKALINE PHOSPHATASE 122 IU/L (3-129); DIRECT BILIRUBIN 0.1 mg/dL (0.0-0.3); TOTAL BILIRUBIN 0.3 MG/DL (0.0-1.0)
[2017-01-16 15:22] VITALS: BP 130/92
[2017-01-16 23:38] VITALS: BP 132/72
[2017-01-17 06:45] LABS: BASOPHIL COUNT 0.1 K/uL (0-0.1); EOSINOPHIL (%) 1.2 % (0-5); EOSINOPHIL COUNT 0.2 K/uL (0-0.3); HEMATOCRIT 29.1 % (36.0-46.0); IMMATURE GRANULOCYTE (%) 1.4 % (0.0-0.7); IMMATURE GRANULOCYTE COUNT 0.2 K/uL; INSTRUMENT ABS NEUTROPHIL CT 9.5 K/uL; LYMPHOCYTE COUNT 1.9 K/uL (1.0-2.8); MCH 31.6 PG (29.0-34.0); MEAN PLAT.VOLUME 10.3 uM^3 (9.5-12.4); MONOCYTE (%) 9.6 % (3-12); MONOCYTE COUNT 1.3 K/uL (0-0.8); NEUTROPHIL COUNT 9.5 K/uL (1.8-6.4); PLATELET COUNT 464 K/uL (156-360); RBC DIS.WIDTH-SD 50.9 % (39-53); RED BLOOD COUNT 2.94 M/uL (3.80-5.20); WHITE BLOOD COUNT 13.1 K/uL (4.1-10.2)
[2017-01-17 07:10] LABS: ANION GAP 9 MEQ/L (2-14); CHLORIDE 109 MEQ/L (99-109); GFR ESTIMATE (CALCULATED) > 59 mL/min/; GLUCOSE 94 mg/dL (70-99); POTASSIUM 3.5 MEQ/L (3.7-5.4); SAMPLE HEMOLYSIS CHECK 0; SAMPLE ICTERIC CHECK 0; SAMPLE LIPEMIA CHECK 0; SODIUM 144 MEQ/L (136-147); UREA NITROGEN (BUN) 6 mg/dL (9-23)
[2017-01-17 07:15] LABS: MAGNESIUM 1.7 mg/dl (1.3-2.7)
[2017-01-17 07:30] VITALS: BP 146/88
[2017-01-17 15:17] VITALS: BP 147/84
[2017-01-17 23:47] VITALS: BP 163/88
[2017-01-18 07:11] LABS: ANION GAP 7 MEQ/L (2-14); CHLORIDE 112 MEQ/L (99-109); GFR ESTIMATE (CALCULATED) > 59 mL/min/; GLUCOSE 99 mg/dL (70-99); MAGNESIUM 1.6 mg/dl (1.3-2.7); POTASSIUM 3.9 MEQ/L (3.7-5.4); SAMPLE HEMOLYSIS CHECK 0; SAMPLE ICTERIC CHECK 0; SAMPLE LIPEMIA CHECK 0; SODIUM 147 MEQ/L (136-147); UREA NITROGEN (BUN) 7 mg/dL (9-23)
[2017-01-18 07:51] VITALS: BP 135/89
[2017-01-18 16:02] VITALS: BP 151/98
[2017-01-19 00:34] VITALS: BP 184/84
[2017-01-19 07:48] VITALS: BP 129/81
[2017-01-19 15:50] VITALS: BP 178/86
[2017-01-19 23:41] VITALS: BP 98/59
[2017-01-20 07:43] VITALS: BP 99/58
[2017-01-20 15:20] VITALS: BP 162/92
[2017-01-20 20:13] VITALS: BP 166/85
[2017-01-21] VITALS (7 sets, daily range): BP systolic 102–187; BP diastolic 58–95
[2017-01-21 07:29] LABS: HEMATOCRIT 32.4 % (36.0-46.0); MCH 32.8 PG (29.0-34.0); MCHC 32.4 G/DL (30.0-36.0); MCV 101.3 FL (83-99); MEAN PLAT.VOLUME 9.7 uM^3 (9.5-12.4); RBC DIS.WIDTH-CV 13.4 % (11.8-14.6); RBC DIS.WIDTH-SD 49.6 % (39-53); WHITE BLOOD COUNT 17.7 K/uL (4.1-10.2)
[2017-01-21 07:32] LABS: ANION GAP 12 MEQ/L (2-14); CHLORIDE 105 MEQ/L (99-109); POTASSIUM 3.9 MEQ/L (3.7-5.4); SAMPLE HEMOLYSIS CHECK 0; SAMPLE ICTERIC CHECK 0; SAMPLE LIPEMIA CHECK 0; SODIUM 140 MEQ/L (136-147); TOTAL BILIRUBIN 0.3 MG/DL (0.0-1.0)
[2017-01-21 07:39] LABS: ALKALINE PHOSPHATASE 122 IU/L (3-129); GFR ESTIMATE (CALCULATED) > 59 mL/min/; GLUCOSE 116 mg/dL (70-99); UREA NITROGEN (BUN) 7 mg/dL (9-23)
[2017-01-21 07:49] LABS: PLATELET COUNT 955 K/uL (156-360)
[2017-01-22 07:43] VITALS: BP 144/85
[2017-01-22 15:32] VITALS: BP 183/88
[2017-01-22 23:40] VITALS: BP 102/56
[2017-01-23 08:00] VITALS: BP 155/78
[2017-01-23 11:06] LABS: HEMATOCRIT 27.7 % (36.0-46.0); MCH 32.2 PG (29.0-34.0); MCHC 31.8 G/DL (30.0-36.0); MCV 101.5 FL (83-99); MEAN PLAT.VOLUME 8.9 uM^3 (9.5-12.4); PLATELET COUNT 844 K/uL (156-360); RBC DIS.WIDTH-CV 13.7 % (11.8-14.6); RBC DIS.WIDTH-SD 50.5 % (39-53); RED BLOOD COUNT 2.73 M/uL (3.80-5.20); WHITE BLOOD COUNT 13.9 K/uL (4.1-10.2)
[2017-01-23 11:31] LABS: ALKALINE PHOSPHATASE 129 IU/L (3-129); ANION GAP 6 MEQ/L (2-14); CHLORIDE 102 MEQ/L (99-109); GFR ESTIMATE (CALCULATED) > 59 mL/min/; GLUCOSE 116 mg/dL (70-99); POTASSIUM 3.9 MEQ/L (3.7-5.4); SAMPLE HEMOLYSIS CHECK 1; SAMPLE ICTERIC CHECK 0; SAMPLE LIPEMIA CHECK 0; SODIUM 137 MEQ/L (136-147); TOTAL BILIRUBIN 0.3 MG/DL (0.0-1.0); UREA NITROGEN (BUN) 8 mg/dL (9-23)
[2017-01-23 11:58] LABS: BILIRUBIN NEGATIVE; BLOOD NEGATIVE; COLOR YELLOW ((YELLOW)); GLUCOSE (STRIP) NEGATIVE; KETONES NEGATIVE; LEUKOCYTES NEGATIVE; NITRITE NEGATIVE; PROTEIN (STRIP) NEGATIVE; SPECIFIC GRAVITY 1.013 (1.000-1.030); UROBILINOGEN 0.2 MG/DL (0.2-1.0)
[2017-01-23 12:02] LABS: ADD MIUA? NO; UCUL ADDED? NO
[2017-01-23] MEDS ORDERED: DELZICOL400 M1 PO (13:36)
[2017-01-23] MEDS ORDERED: DUONEB 2.5-0.5 M3 ML PEP (13:36)
[2017-01-23 15:22] VITALS: BP 173/91
== END 2017-01-23 18:38 | DRG 871 ==
LOC: EME 10:38 → 5SOUTH 18:02 → EDOF 18:02 → 5SOUTH 18:02 → ENRESERV 18:07 → 5SOUTH 20:10
PROVIDERS: Emergency Medicine; Hospitalist; Internal Medicine; Internal Medicine Nephrology; Nurse Practitioner Adult Health
PROC: 0DH63UZ Insertion of Feeding Device into Stomach, Percutaneous Approach (ICD-10-PCS; principal; 2017-01-20)
DX: R78.81 Bacteremia (principal); B95.5 Unspecified streptococcus as the cause of diseases classified elsewhere; J69.0 Pneumonitis due to inhalation of food and vomit; J44.0 Chronic obstructive pulmonary disease with (acute) lower respiratory infection; J15.4 Pneumonia due to other streptococci; M62.82 Rhabdomyolysis; G93.41 Metabolic encephalopathy; E43 Unspecified severe protein-calorie malnutrition; R64 Cachexia; R62.7 Adult failure to thrive; Z68.1 Body mass index [BMI] 19.9 or less, adult; F10.239 Alcohol dependence with withdrawal, unspecified; R13.10 Dysphagia, unspecified; E87.0 Hyperosmolality and hypernatremia; E86.0 Dehydration; E87.2 Acidosis; E87.6 Hypokalemia; E55.9 Vitamin D deficiency, unspecified; E88.09 Other disorders of plasma-protein metabolism, not elsewhere classified; I10 Essential (primary) hypertension; K21.9 Gastro-esophageal reflux disease without esophagitis; D47.3 Essential (hemorrhagic) thrombocythemia; F19.10 Other psychoactive substance abuse, uncomplicated; R80.9 Proteinuria, unspecified; R82.2 Biliuria; R82.4 Acetonuria; I95.9 Hypotension, unspecified; D64.9 Anemia, unspecified; R00.0 Tachycardia, unspecified; K52.9 Noninfective gastroenteritis and colitis, unspecified; R40.2430 Glasgow coma scale score 3-8, unspecified time; F17.200 Nicotine dependence, unspecified, uncomplicated; G43.909 Migraine, unspecified, not intractable, without status migrainosus; F41.9 Anxiety disorder, unspecified; F31.9 Bipolar disorder, unspecified; Z80.3 Family history of malignant neoplasm of breast; Z80.41 Family history of malignant neoplasm of ovary; Z85.3 Personal history of malignant neoplasm of breast; Z87.11 Personal history of peptic ulcer disease; Z90.710 Acquired absence of both cervix and uterus; Z92.3 Personal history of irradiation; Z88.1 Allergy status to other antibiotic agents
CPT/HCPCS: 70450; 70551; 71010; 80048; 80048 91; 80053; 80069; 80076; 80198; 80306 90; 81003; 82550; 83605; 83690; 83735; 84484; 85025; 85027; 85610; 85730; 87040; 87077; 87086; 87185; 87493; 87801; 92526 GN; 92610 GN; 93005; 94760; 94799; 97530 GO; 97530 GP; 99202; 99281; 99285; J0295; J0360; J0456; J0690; J1170; J1644; J2060; J2405; J2543; J3010; J3370; J3475; J3480; J7030; J7042; J7050; J7070

== ENCOUNTER 2017-01-24 17:49 | Emergency (ER) | payer OTHER ==
[~2017-01-24] VITALS: Ht 157.5 cm; Wt 40.4 kg
[~2017-01-24 17:49] MED LIST changes: +DELZICOL400 M1 PO; +DUONEB 2.5-0.5 M3 ML PEP; +EXTRA STRENGTH500 M1 PO; +FUROSEMIDE20 MG PO; +IPRATROPIU0.2 MG/1 M IH; +MOBIC7.5 MG PO; +QUETIAPINE FUM100 MG PO; +QUETIAPINE FUM200 MG PO
[2017-01-24 18:26] LABS: EOSINOPHIL (%) 0.5 % (0-5); EOSINOPHIL COUNT 0.1 K/uL (0-0.3); HEMATOCRIT 24.7 % (36.0-46.0); IMMATURE GRANULOCYTE (%) 0.7 % (0.0-0.7); IMMATURE GRANULOCYTE COUNT 0.1 K/uL; INSTRUMENT ABS NEUTROPHIL CT 8.8 K/uL; LYMPHOCYTE COUNT 2.2 K/uL (1.0-2.8); MCH 32.3 PG (29.0-34.0); MCHC 32.4 G/DL (30.0-36.0); MCV 99.6 FL (83-99); MEAN PLAT.VOLUME 8.6 uM^3 (9.5-12.4); MONOCYTE (%) 6.2 % (3-12); MONOCYTE COUNT 0.7 K/uL (0-0.8); NEUTROPHIL (%) 73.8 % (45-76); NEUTROPHIL COUNT 8.8 K/uL (1.8-6.4); PLATELET COUNT 756 K/uL (156-360); RBC DIS.WIDTH-SD 49.6 % (39-53); RED BLOOD COUNT 2.48 M/uL (3.80-5.20); WHITE BLOOD COUNT 11.9 K/uL (4.1-10.2)
[2017-01-24 18:39] LABS: CHLORIDE 104 mEq/L (99-109); POTASSIUM 3.6 mEq/L (3.7-5.4); SODIUM 137 mEq/L (136-147)
[2017-01-24 18:40] LABS: GLUCOSE 99 mg/dL (70-99)
[2017-01-24 18:42] LABS: ANION GAP 6 MEQ/L (2-14)
[2017-01-24 18:44] LABS: GFR ESTIMATE (CALCULATED) > 59 mL/min/
[2017-01-24 18:45] LABS: UREA NITROGEN (BUN) 10 mg/dL (9-23)
[2017-01-24 22:45] VITALS: BP 140/70
== END 2017-01-24 22:46 ==
LOC: EME 17:49
PROVIDERS: Emergency Medicine
DX: R51 Headache (principal); D64.9 Anemia, unspecified; W18.30XA Fall on same level, unspecified, initial encounter; I10 Essential (primary) hypertension; J44.9 Chronic obstructive pulmonary disease, unspecified; K21.9 Gastro-esophageal reflux disease without esophagitis; F17.200 Nicotine dependence, unspecified, uncomplicated; Z85.3 Personal history of malignant neoplasm of breast; Z86.19 Personal history of other infectious and parasitic diseases; Z88.1 Allergy status to other antibiotic agents; Z88.8 Allergy status to other drugs, medicaments and biological substances
CPT/HCPCS: 70450; 80048; 85025; 93005; 99281; 99283

== ENCOUNTER → 2017-06-02 | Outpatient (CLI) | payer OTHER ==
[~2017-06-02] MED LIST changes: +MAGNESIUM250 MG PO; +SEROQUEL200 MG PO; +VITAMIN B COMP1 EACH PO
[2017-06-02 08:31] LABS: HEMATOCRIT 33.6 % (36.0-46.0); HEMOGLOBIN 10.8 G/DL (11.9-15.5); MCH 31.1 PG (29.0-34.0); MCHC 32.1 G/DL (30.0-36.0); MCV 96.8 FL (83-99); PLATELET COUNT 314 K/uL (156-360); RBC DIS.WIDTH-CV 12.9 % (11.8-14.6); RED BLOOD COUNT 3.47 M/uL (3.80-5.20)
[2017-06-02 08:41] LABS: INTER. NORMALIZED RATIO 1.1
[2017-06-02 08:44] LABS: PTT 31.7 SEC (25-37)
== END | disposition home or self-care (01) ==
LOC: OPR 07:49 → EDSTATUS 08:00 → OPR 08:00
PROVIDERS: Anesthesiology
DX: R91.1 Solitary pulmonary nodule (principal); J44.9 Chronic obstructive pulmonary disease, unspecified; K21.9 Gastro-esophageal reflux disease without esophagitis; D50.9 Iron deficiency anemia, unspecified; F32.9 Major depressive disorder, single episode, unspecified; F10.21 Alcohol dependence, in remission; Z85.3 Personal history of malignant neoplasm of breast; F17.210 Nicotine dependence, cigarettes, uncomplicated
CPT/HCPCS: 71045; 77012; 85027; 85610; 85730; 88305; 88341 TC; 88342 TC; J3010